=== PATIENT | female | born 1975 | race Caucasian/White ===

== ENCOUNTER 2019-12-13 15:55 | Emergency (ER) | payer SELFPAY ==
[2019-12-13] MEDS ORDERED: Lidocaine 1% (PF) 30 ML VIAL ONE (16:20)
[2019-12-13] MEDS ORDERED: Bacitracin 1 PK ONE (16:42)
== END 2019-12-13 16:50 | disposition home or self-care (01) ==
LOC: NAV ERS 15:55
DX: S61.212A Laceration without foreign body of right middle finger without damage to nail, initial encounter (principal); J45.909 Unspecified asthma, uncomplicated; F17.210 Nicotine dependence, cigarettes, uncomplicated; W26.8XXA Contact with other sharp object(s), not elsewhere classified, initial encounter
CPT/HCPCS: 12001; J2001

== ENCOUNTER 2019-12-19 17:34 | Emergency (ER) | payer SELFPAY | END 2019-12-19 17:57 | disposition home or self-care (01) | LOC: NAV ERS 17:34 | DX: M79.89 Other specified soft tissue disorders (principal); S61.212D Laceration without foreign body of right middle finger without damage to nail, subsequent encounter; J45.909 Unspecified asthma, uncomplicated; F17.210 Nicotine dependence, cigarettes, uncomplicated; X58.XXXD Exposure to other specified factors, subsequent encounter | CPT/HCPCS: 99282 ==

== ENCOUNTER 2019-12-29 09:58 | Emergency (ER) | payer SELFPAY | END 2019-12-29 10:24 | disposition home or self-care (01) | LOC: NAV ERS 09:58 | DX: S61.212D Laceration without foreign body of right middle finger without damage to nail, subsequent encounter (principal); L23.9 Allergic contact dermatitis, unspecified cause; F32.9 Major depressive disorder, single episode, unspecified; J45.909 Unspecified asthma, uncomplicated; F17.210 Nicotine dependence, cigarettes, uncomplicated; Z79.899 Other long term (current) drug therapy; Z79.51 Long term (current) use of inhaled steroids; X58.XXXD Exposure to other specified factors, subsequent encounter | CPT/HCPCS: 99282 ==

== ENCOUNTER 2020-05-17 07:59 | Emergency (ER) | payer OTHER ==
[2020-05-17] MEDS ORDERED: methylPREDNISolone Acetate 40 mg/ml Vial ONE (08:40)
[2020-05-17] MEDS ORDERED: Albuterol Sulfate 2.5 mg/0.5 ml Neb ONE (08:41)
[2020-05-17 17:48] LABS: SARS-CoV-2 MS2 Positive; SARS-CoV-2 N Gene Negative; SARS-CoV-2 S Gene Negative; SARS-CoV-2 by NAA Not Detected (NotDetected); SARS-CoV-2 orf1ab Negative
== END 2020-05-17 09:15 | disposition home or self-care (01) ==
LOC: NAV ERS 07:59
DX: J45.901 Unspecified asthma with (acute) exacerbation (principal); F32.9 Major depressive disorder, single episode, unspecified; F17.210 Nicotine dependence, cigarettes, uncomplicated; Z79.899 Other long term (current) drug therapy
CPT/HCPCS: 87635; 96372; J2920; J7611; U0003